=== PATIENT | male | born 1975 | race Two or more races ===

== ENCOUNTER 2024-05-04 09:18 | Emergency (ER) | payer OTHER ==
[~2024-05-04] VITALS: Ht 167.6 cm; Wt 63.5 kg
[2024-05-04] MEDS ORDERED: KETOROLAC TROMETHAMINE 60 MG VIAL IM STA (09:43)
[2024-05-04 10:52] LABS: PH,URINE 6.5 (5.0-8.0); URINE APPEARANCE Clear; URINE BILIRRUBIN Negative (NEGATIVE); URINE BLOOD NHT; URINE COLOR Yellow; URINE GLUCOSE Negative (NEGATIVE); URINE KETONE Negative (NEGATIVE); URINE LEUKOCYTE Negative; URINE NITRATE Negative; URINE PROTEIN Negative (NEGATIVE)
[2024-05-04 10:53] LABS: URINE RBC 12.3 uL (0.0-20.8); URINE WBC 1.8 uL (0.0-23.2)
[2024-05-04 11:02] LABS: URINE BACTERIA 3.7 uL (0.0-1933); URINE EPITHELIAL CELLS 0.9 uL (0.0-38.8)
[2024-05-04 11:03] LABS: CALCIUM 9.4 mg/dL (8.5-10.1); CREATININE SERUM 0.8 mg/dL (0.70-1.30); GFR 102.32; POTASSIUM 4.14 mEq/L (3.5-5.1)
[2024-05-04 11:12] LABS: HEMATOCRIT 39.2 % (39.0-48.0); HEMOGLOBIN 13.1 g/dL (13-16.00); MEAN CELL VOLUME 83.2 fL (80.0-100.00); MEAN CORPUSCULAR HEMOGLOBIN 27.8 pg (27.00-32.0); MEAN CORPUSCULAR HGB CONC 33.4 g/dl (32.0-36.0); PLATELET COUNT 179 K/uL (150-450); RED BLOOD COUNT 4.71 M/uL (4.00-6.00); RED CELL DISTRIBUTION WIDTH 15.8 % (11.5-14.5)
== END 2024-05-04 13:54 | disposition home or self-care (01) ==
LOC: ER 09:19
PROVIDERS: General Practice
DX: R10.9 Unspecified abdominal pain (principal)

== ENCOUNTER 2025-02-22 09:46 | Emergency (ER) | payer OTHER ==
[~2025-02-22] VITALS: Ht 170.2 cm; Wt 70.3 kg
[2025-02-22 11:38] LABS: BASO % 0.6 % (0.1-1.2); EOS # 0.08 (0.04-0.54); EOS % 1.7 % (0.7-7.0); HEMATOCRIT 40.4 % (40.1-51.0); MEAN CORPUSCULAR HEMOGLOBIN 27.3 pg (25.6-32.2); MONO # 1.14 (0.24-0.82); NEUT # 2.07 (1.56-6.13); NEUT % 44.7 % (34.0-71.1); PLATELET COUNT 241 K/uL (163-369); RED BLOOD COUNT 5.13 M/uL (4.63-6.08); RED CELL DISTRIBUTION WIDTH 14.5 % (11.6-14.4)
[2025-02-22 12:43] LABS: COVID-19 AG NEGATIVE (NEGATIVE); INFLUENZA A AG NEGATIVE (NEGATIVE)
[2025-02-22 13:14] LABS: MONO % 24.6 % (4.7-12.5)
== END 2025-02-22 14:48 | disposition home or self-care (01) ==
LOC: ER 10:02
PROVIDERS: General Practice
DX: R05.9 Cough, unspecified (principal); Z20.822 Contact with and (suspected) exposure to COVID-19